=== PATIENT | male | born 1970 | race African-American/Black ===

== ENCOUNTER 2017-01-01 18:12 | Emergency (ER) | payer SELFPAY ==
[~2017-01-01] VITALS: Ht 193 cm; Wt 90.0 kg
[~2017-01-01 18:12] MED LIST: CEPH-460 PO; DICY1TAB26 PO; FLUO20CA4 PO; IBUP800T23 PO; RISP1 PO; TRAZ50TA12 PO
[2017-01-01 18:15] VITALS: BP 120/75; PULSE 92; RESP 20; TEMP 98.6; O2SAT 97
--- NOTE | 2017-01-01 18:18 | PD ---
Physical Exam Date Seen by Provider: Jan 01, 2017 Time Seen by Provider: 18:17 Narrative 46 yo male here for evaluation of depression and suicidal ideation. Uses cocaine and alcohol. Been using in the past 24 hours. Feels suicidal with plan. No injuries. Does not take any meds. No hallucinations. Very anxious in triage. Vitals are stable in triage. Awaiting bed placement. Data Data Last Documented VS Vital Signs Date Time Temp Pulse Resp B/P Pulse Ox O2 Delivery O2 Flow Rate FiO2 01/01/17 18:15 98.6 92 20 120/75 97 Room Air [facility] Medical Record Reviewed: Yes Supervised Visit with MATTHIAS: No Andre Morejon Jan 01, 2017 18:18
[2017-01-01 19:12] LABS: AUTOMATED NEUTROPHIL # 6.8 TH/MM3 (1.8-7.7); BASOPHIL # 0.1 TH/MM3 (0-0.2); BASOPHIL % 0.6 % (0.0-2.0); EOSINOPHIL # 0.3 TH/MM3 (0-0.4); HEMATOCRIT 42.1 % (39.0-51.0); HEMO FLAGS DIFF FINAL; LYMPH % 19.8 % (9.0-44.0); MEAN CELL VOLUME 91.4 FL (80.0-100.0); MEAN CORPUSCULAR HEMOGLOBIN 31.4 PG (27.0-34.0); MEAN CORPUSCULAR HGB CONC 34.3 % (32.0-36.0); MONO % 9.9 % (0.0-8.0); NEUT % 66.7 % (16.0-70.0); PLATELET COUNT 209 TH/MM3 (150-450); RED CELL DISTRIBUTION WIDTH 14.2 % (11.6-17.2); WHITE BLOOD COUNT 10.2 TH/MM3 (4.0-11.0)
[2017-01-01 19:31] LABS: ALT (GPT) 17 U/L (12-78)
[2017-01-01 19:34] LABS: ALKALINE PHOSPHATASE 76 U/L (45-117); TOTAL BILIRUBIN ADULT 0.3 MG/DL (0.2-1.0)
[2017-01-01 19:37] LABS: ANION GAP 9 MEQ/L (5-15); AST (GOT) 19 U/L (15-37); BICARBONATE 27.4 MEQ/L (21.0-32.0); BLOOD UREA NITROGEN 11 MG/DL (7-18); CHLORIDE 102 MEQ/L (98-107); GLOMERULAR FILTRATION RATE 73 ML/MIN (>89); POTASSIUM 3.7 MEQ/L (3.5-5.1); SODIUM (NA) 138 MEQ/L (136-145)
--- NOTE | 2017-01-01 20:48 | PD ---
HPI Chief Complaint: Psychiatric Symptoms Time Seen by Provider: 20:43 Travel History International Travel<30 days: No Contact w/Intl Traveler<30days: No Traveled to known affect area: No History of Present Illness HPI 46-year-old male presents to the emergency department voluntarily for psychiatric evaluation. The patient states that he has been clean for 8 months from cocaine and alcohol. However, 2 weeks ago, he just started using cocaine again. He states he feels like he has two personalities. One that is a family that can hold down a job and the other one that parties. He states he has no cravings, bulges automatically start using cocaine again. He states he has not slept in 5 days. He states that even when he can sleep, illicits for 3 hours at a time. He states he feels fatigued. He states that he has been on risperidone, fluoxetine and trazodone. He states he has been taking these as prescribed. The patient reports feeling suicidal with a plan to drown himself. He denies any attempt to hurt himself at this time. His lifestyles affecting his marriage and he is heading for divorce. Patient denies any medical complaints at this time. PFSH Past Medical History Anxiety: Yes Neurologic: Yes (1 CM BRAIN MASS) Psychiatric: Yes (Hx of treatment for depression, psychosis) Respiratory: Yes (pnumonia in 1996) Social History Alcohol Use: Yes Tobacco Use: Yes (1/2 PPD) Substance Use: Yes (coccaine/etoh) Allergies-Medications (Allergen,Severity, Reaction): Coded Allergies: No Known Allergies (Verified , 01/01/17) Reported Meds & Prescriptions Reported Meds & Active Scripts Active Ibuprofen 800 Mg Tab 800 Mg PO Q6HR PRN Keflex (Cephalexin) 500 Mg Cap 500 Mg PO Q8H 10 Days Trazodone (Trazodone HCl) 50 Mg Tab 50 Mg PO HS PRN Fluoxetine (Fluoxetine HCl) 20 Mg Cap 20 Mg PO DAILY Risperdal (Risperidone) 1 Mg Tab 1 Mg PO Q12HR Bentyl (Dicyclomine HCl) 20 Mg Tab 20 Mg PO Q8 Review of Systems Except as stated in HPI: all other systems reviewed are Neg Physical Exam Narrative GENERAL: Well-nourished, well-developed male patient, alert and oriented to person, place, time. Patient appears very anxious on exam SKIN: Focused skin assessment warm/dry. HEAD: Normocephalic. EYES: No scleral icterus. No injection or drainage. NECK: Supple, trachea midline. No JVD or lymphadenopathy. CARDIOVASCULAR: Regular rate and rhythm without murmurs, gallops, or rubs. RESPIRATORY: Breath sounds equal bilaterally. No accessory muscle use. Lungs sounds are clear to auscultation. GASTROINTESTINAL: Abdomen soft, non-tender, nondistended. MUSCULOSKELETAL: No cyanosis, or edema. PSYCHIATRIC: No delusional thought processes. No hallucinations. Data Data Last Documented VS Vital Signs Date Time Temp Pulse Resp B/P Pulse Ox O2 Delivery O2 Flow Rate FiO2 01/01/17 18:15 98.6 92 20 120/75 97 Room Air Orders Complete Blood Count With Diff (01/01/17 18:19) Comprehensive Metabolic Panel (01/01/17 18:19) Psych Screen (01/01/17 18:19) Drug Screen, Random Urine (01/01/17 18:19) Alcohol (Ethanol) (01/01/17 18:19) Labs Laboratory Tests Test 01/01/17 18:44 White Blood Count 10.2 TH/MM3 Red Blood Count 4.60 MIL/MM3 Hemoglobin 14.4 GM/DL Hematocrit 42.1 % Mean Corpuscular Volume 91.4 FL Mean Corpuscular Hemoglobin 31.4 PG Mean Corpuscular Hemoglobin 34.3 % Concent Red Cell Distribution Width 14.2 % Platelet Count 209 TH/MM3 Mean Platelet Volume 10.0 FL Neutrophils (%) (Auto) 66.7 % Lymphocytes (%) (Auto) 19.8 % Monocytes (%) (Auto) 9.9 % Eosinophils (%) (Auto) 3.0 % Basophils (%) (Auto) 0.6 % Neutrophils # (Auto) 6.8 TH/MM3 Lymphocytes # (Auto) 2.0 TH/MM3 Monocytes # (Auto) 1.0 TH/MM3 Eosinophils # (Auto) 0.3 TH/MM3 Basophils # (Auto) 0.1 TH/MM3 CBC Comment DIFF FINAL Differential Comment Sodium Level 138 MEQ/L Potassium Level 3.7 MEQ/L Chloride Level 102 MEQ/L Carbon Dioxide Level 27.4 MEQ/L Anion Gap 9 MEQ/L Blood Urea Nitrogen 11 MG/DL Creatinine 1.27 MG/DL Estimat Glomerular Filtration 73 ML/MIN Rate Random Glucose 104 MG/DL Calcium Level 9.7 MG/DL Total Bilirubin 0.3 MG/DL Aspartate Amino Transf 19 U/L (AST/SGOT) Alanine Aminotransferase 17 U/L (ALT/SGPT) Alkaline Phosphatase 76 U/L Total Protein 7.9 GM/DL Albumin 4.3 GM/DL Ethyl Alcohol Level 7 MG/DL MDM Medical Decision Making Medical Screen Exam Complete: Yes Emergency Medical Condition: Yes Medical Record Reviewed: Yes Differential Diagnosis Substance-induced mood disorder versus depression versus anxiety versus suicidal ideation versus bipolar disorder versus schizophrenia versus psychosis Narrative Course 46-year-old male presents to the emergency Department voluntarily for psychiatric evaluation. Patient states he is suicidal with the plan. Patient will be placed under Melton act. Patient states he last used cocaine this morning. He is drinking up to the time he came to the hospital. CBC shows no acute abnormality. CMP is unremarkable. Alcohol level is 7. Urine drug screen is pending. Patient is medical cleared for psychiatric screening and disposition. Mental health screening discussed with the patient. Psychiatric screen ordered. Diagnosis Primary Impression: Substance induced mood disorder Additional Instructions: Patient is medically cleared for psychiatric screening and disposition. Condition: Stable Janina Torres ROLANDO Jan 01, 2017 20:48
[2017-01-01] MEDS ORDERED: HALOPERIDOL LACTATE 5 MG/ML AMP IM ONE (21:15)
[2017-01-01] MEDS ORDERED: LORazepam 2 MG/ML VIAL IM ONE (21:15)
[2017-01-01] MEDS ORDERED: diphenhydrAMINE HCL 50 MG/ML VIAL IM ONE (21:15)
[2017-01-01 22:20] VITALS: BP 117/63; PULSE 81; RESP 16; TEMP 98.2; O2SAT 99
[2017-01-02 02:19] VITALS: BP 103/56; PULSE 54; RESP 16; O2SAT 99
[2017-01-02 06:21] VITALS: BP 108/60; PULSE 58; RESP 16; O2SAT 97
[2017-01-02 10:00] VITALS: BP 93/55; PULSE 72; RESP 18
--- NOTE | 2017-01-02 10:35 | PD.PSY.CON ---
Provisional Diagnosis Morris I. Substance-induced mood disorder F 19.94, cocaine abuse F-14.10 History of Present Illness Service Psychiatry Consult Requested By EDMD Reason for Consult Melton act Primary Care Physician No Primary Care Physician HPI Patient is a 46-year-old Afro-Hungarian male comes the ED under Melton act signed by Richi saenz dated 01/01/17 8:48 PM. That document reviewed essentially stating patient feels like he has 2 personalities and has not slept in 5 days report suicidal ideation with plan to drown himself. Patient seen screened in the ED there is no urine toxicology done. Patient states she has been using cocaine daily for a number of weeks. He started using cocaine as an adolescent. Has spent multiple years and 0 related to drug charges. He states he has been living with his and 2 of his 7 children but she kicked him out of the house 2-3 days ago because of his cocaine use. Thus he is now homeless. It appears patient was seen a few years ago through [facility] and been prescribed various medications none of which he took because he states it made him "sedated". So he stopped taking the meds unilaterally and continued his cocaine use. At this time he gives a somewhat convoluted confusing story as to why he is here. It appears his main purpose is for lodging. He denies suicidality and is somewhat manipulative manner. Denies voices in a similar manner. In any event at the present time patient does not meet Melton act criteria. I will lift the Melton act. It is okay by psych for discharge or patient medically cleared and stable. The been no Rx by me. Strong recommendation for this gentleman the absolute abstinence, referred to NA, referred to [facility] for voluntary substance abuse assessment, and referred to [facility] for any further mental health assessment. Also suggested that he attempt to arrange lodging in his sober house such [facility]. (Patient states he knows about them and may have resided there in the past) Review of Systems Constitutional: DENIES: Diaphoretic episodes, Fatigue, Fever, Weight gain, Weight loss, Chills, Dizziness, Change in appetite, Night Sweats Endocrine: DENIES: Heat/cold intolerance, Polydipsia, Polyuria, Polyphagia Eyes: DENIES: Blurred vision, Diplopia, Eye inflammation, Eye pain, Vision loss , Photosensitivity, Double Vision Respiratory: DENIES: Apneas, Cough, Snoring, Wheezing, Hemoptysis, Sputum production, Shortness of breath Cardiovascular: DENIES: Chest pain, Palpitations, Syncope, Dyspnea on Exertion , PND, Lower Extremity Edema, Orthopnea, Claudication Gastrointestinal: DENIES: Abdominal pain, Black stools, Bloody stools, Constipation, Diarrhea, Nausea, Vomiting, Difficulty Swallowing, Anorexia Genitourinary: DENIES: Sexual dysfunction, Urinary frequency, Urinary incontinence, Urgency, Hematuria, Dysuria, Nocturia, Penile Discharge, Testicular Pain, Testicular Swelling Musculoskeletal: DENIES: Joint pain, Muscle aches, Stiffness, Joint Swelling, Back pain, Neck pain Integumentary: DENIES: Abnormal pigmentation, Nail changes, Pruritus, Rash Hematologic/lymphatic: DENIES: Bruising, Lymphadenopathy Immunologic/allergic: DENIES: Eczema, Urticaria Psychiatric: DENIES: Anxiety, Confusion, Mood changes, Depression, Hallucinations, Agitation, Suicidal Ideation, Homicidal Ideation, Delusions Past Family Social History Coded Allergies: No Known Allergies (Verified , 01/01/17) Past Medical History Patient medically cleared ED Discontinued Scripts Ibuprofen 800 Mg [id number] Mg PO Q6HR PRN (PAIN) #30 TAB Ref 0 Prov:Jada Herrera [employer]UTIONS ANALYST 05/20/16 Cephalexin (Keflex)500 Mg [id number] Mg PO Q8H 10 Days Ref 0 Prov:Jada HerreraP 05/20/16 Trazodone 50 Mg Tab50 Mg PO HS PRN (INSOMNIA) #30 TAB Prov:Padmini Xavier MD 05/11/16 Risperidone (Risperdal)1 Mg Tab1 Mg PO Q12HR #60 TAB Prov:Padmini Xavier MD 05/11/16 Family History Unknown at this time Social History Patient was living with his and 2 of his 7 children, has been homeless since she kicked him out of the house 2-3 days ago Patient's Strengths (min. 2) Patient verbal able to access health care Physical Exam Patient screened in ED exam reviewed and agreed with patient laying quietly in his mattress on the floor in J pod nurse Maikol present throughout session. Patient is in no acute distress, neck supple, he is in no respiratory distress. No complaints of abdominal pain. Patient moving all 4 extremities without difficulty. No abnormal motor movements noted Vital Signs Vital Signs Date Time Temp Pulse Resp B/P Pulse Ox O2 Delivery O2 Flow Rate FiO2 01/02/17 06:21 58 16 108/60 97 01/01/17 22:20 98.2 Room Air Mental Status Examination Alert oriented thin slender tall Afro-Hungarian male guarded and perhaps somewhat manipulative in his responses Appearance Somewhat disheveled Speech: Rapid, Circumstantial, Tangential Orientation: x3 Memory: Unremarkable Thought Process: Circumstantial, Linear Thought Content: Paranoid (mildly), Other Language Poor Fund of Knowledge Poor Hallucination Type: None (denies) Attention and Concentration: Other (poor) Suicidal Ideation: No (denies at this time) Previous Suicide Attempts: Yes Homicidal Ideation: No Previous Homicide Attempts: No Insight: Poor Judgment: Poor Affect: Other (decrease range and intensity) Mood: Euthymic (to somewhat restricted and dysphoric) Motor Activity: Normal gait Assessment & Plan Problem List: (1) Substance induced mood disorder ICD Code: F19.94 (2) Cocaine abuse ICD Code: F14.10 Assessment & Plan Estimated LOS: days this time patient does not meet Melton act criteria will lift Melton act. It is okay by psych for discharge when medically clear and stable. No Rx by me. Referral [facility] for further medication assessment at his discretion. Refer [facility] outpatient [facility] substance abuse assessment. Referred to NA. Refer to sober house such as [facility] Discharge Planning See above Request HC Surrog/Guard Advoc?: No Breezy Costello MD Jan 02, 2017 10:35
[2017-01-02 11:01] VITALS: BP 93/55; PULSE 72; RESP 18
== END 2017-01-02 11:52 | disposition home or self-care (01) ==
LOC: NEPD 18:12 → NEPJ 01-02 11:52
DX: F19.94 Other psychoactive substance use, unspecified with psychoactive substance-induced mood disorder (principal)
CPT/HCPCS: 80053; 80307; 85025; 96372; 99284; J1200; J1630; J2060

== ENCOUNTER 2017-03-20 15:49 | Inpatient (IN) | payer OTHER ==
[~2017-03-20] VITALS: Ht 190.5 cm; Wt 86.6 kg
[2017-03-20] MEDS ORDERED: SODIUM CHLOR 0.9% 1000 ML INJ 1,000 ML IV ONE (15:59)
[2017-03-20] MEDS ORDERED: LORazepam 2 MG/ML VIAL IV PUSH ONE (16:00)
[2017-03-20] MEDS ORDERED: SODIUM CHLORIDE 0.9% FLUSH 10 ML FLUSH IVF PRN (16:00)
[2017-03-20] MEDS ORDERED: ZIPRASIDONE MESYLATE 20 MG VIAL IM ONE (16:00)
[2017-03-20] MEDS ORDERED: diphenhydrAMINE HCL 50 MG/ML VIAL IV PUSH ONE (16:00)
[2017-03-20 16:04] VITALS: O2SAT 100
[2017-03-20 16:05] VITALS: BP 114/83; PULSE 94; RESP 28; TEMP 98.5; O2SAT 97
--- NOTE | 2017-03-20 16:08 | PD ---
HPI Chief Complaint: Alcohol/Drug Intoxication Time Seen by Provider: 16:02 Travel History International Travel<30 days: No Contact w/Intl Traveler<30days: No Traveled to known affect area: No History of Present Illness HPI Diagnoses a 46-year-old male with history of polysubstance abuse, schizophrenia , bipolar disorder, depression, who presents today under a Melton act with severe agitation after he reportedly used cocaine and coughed cleaning solution. The patient states he's never done this before. When asked about never doing any drugs before he states he has never huffed before but has used cocaine in the past. He denies any chest pain, chest pressure. He reports severe agitation. He does report in the past he has had suicidal ideation and homicidal ideation. He denies any suicidal ideation today. PFSH Past Medical History Bipolar Disorder: Yes Anxiety: Yes Diminished Hearing: No Neurologic: Yes (1 CM BRAIN MASS) Psychiatric: Yes (Hx of treatment for depression, psychosis) Respiratory: Yes (pnumonia in 1996) Schizophrenia: Yes Social History Alcohol Use: Yes (SOCIALLY) Tobacco Use: Yes (1/2 PPD) Substance Use: Yes (coccaine/etoh) Allergies-Medications (Allergen,Severity, Reaction): Coded Allergies: No Known Allergies (Verified , 01/01/17) Reported Meds & Prescriptions Reported Meds & Active Scripts Active No Active Prescriptions or Reported Medications Review of Systems ROS Limitations: Clinical Condition, Intoxication HENT: No: Headaches, Neck Pain Cardiovascular: No: Chest Pain or Discomfort, Palpitations Respiratory: No: Cough, Shortness of Breath Gastrointestinal: No: Nausea, Vomiting, Abdominal Pain Musculoskeletal: No: Myalgias, Weakness, Pain Neurologic: No: Weakness, Dizziness, Headache Psychiatric: Positive: Anxiety, Mood Disorder, Substance Abuse, No: Suicidal Ideations, Homicidal Ideation Physical Exam Narrative GENERAL: Well-developed well-nourished male who appears to be acutely agitated. SKIN: Focused skin assessment warm/dry. HEAD: Atraumatic. Normocephalic. EYES: Pupils equal and round at 4 mm. No scleral icterus. No injection or drainage. ENT: No nasal bleeding or discharge. Mucous membranes pink and moist. NECK: Trachea midline. No JVD. Full range of motion/supple. CARDIOVASCULAR: Regular rate and rhythm. No murmur appreciated. RESPIRATORY: No accessory muscle use. Clear to auscultation. Breath sounds equal bilaterally. Hepatic and splenic margins not palpable. MUSCULOSKELETAL: No obvious deformities. No clubbing. No cyanosis. No edema. NEUROLOGICAL: Awake and agitated. No obvious cranial nerve deficits. Motor grossly within normal limits. Normal speech. PSYCHIATRIC: Acutely agitated with aggressive mood. Data Data Last Documented VS Vital Signs Date Time Temp Pulse Resp B/P (MAP) Pulse Ox O2 Delivery O2 Flow Rate FiO2 03/20/17 18:42 73 15 104/67 (79) 100 Nasal Cannula 2.00 03/20/17 16:05 98.5 Orders Orders Electrocardiogram (03/20/17 15:59) Basic Metabolic Panel (Bmp) (03/20/17 15:59) Complete Blood Count With Diff (03/20/17 15:59) Iv Access Insert/Monitor (03/20/17 15:59) Ecg Monitoring (03/20/17 15:59) Oximetry (03/20/17 15:59) Lorazepam Inj (Ativan Inj) (03/20/17 16:00) Sodium Chloride 0.9% Flush (Ns Flush) (03/20/17 16:00) Sodium Chlor 0.9% 1000 Ml Inj (Ns 1000 M (03/20/17 15:59) Drug Screen, Random Urine (03/20/17 15:59) Alcohol (Ethanol) (03/20/17 15:59) Ziprasidone Inj (Geodon Inj) (03/20/17 16:00) Diphenhydramine Inj (Benadryl Inj) (03/20/17 16:00) Labs Laboratory Tests Test 03/20/17 16:20 White Blood Count 12.6 TH/MM3 Red Blood Count 4.93 MIL/MM3 Hemoglobin 15.6 GM/DL Hematocrit 45.6 % Mean Corpuscular Volume 92.6 FL Mean Corpuscular Hemoglobin 31.7 PG Mean Corpuscular Hemoglobin Concent 34.2 % Red Cell Distribution Width 14.2 % Platelet Count 211 TH/MM3 Mean Platelet Volume 9.8 FL Neutrophils (%) (Auto) 74.9 % Lymphocytes (%) (Auto) 13.9 % Monocytes (%) (Auto) 9.5 % Eosinophils (%) (Auto) 1.1 % Basophils (%) (Auto) 0.6 % Neutrophils # (Auto) 9.5 TH/MM3 Lymphocytes # (Auto) 1.8 TH/MM3 Monocytes # (Auto) 1.2 TH/MM3 Eosinophils # (Auto) 0.1 TH/MM3 Basophils # (Auto) 0.1 TH/MM3 CBC Comment DIFF FINAL Differential Comment Blood Urea Nitrogen 15 MG/DL Creatinine 1.28 MG/DL Random Glucose 75 MG/DL Calcium Level 10.2 MG/DL Sodium Level 138 MEQ/L Potassium Level 3.9 MEQ/L Chloride Level 102 MEQ/L Carbon Dioxide Level 28.9 MEQ/L Anion Gap 7 MEQ/L Estimat Glomerular Filtration Rate 73 ML/MIN Ethyl Alcohol Level LESS THAN 3 MG/DL MDM Medical Decision Making Medical Screen Exam Complete: Yes Emergency Medical Condition: Yes Differential Diagnosis Substance induced mood disorder versus manic episode versus metabolic derangement Narrative Course 46-year-old male presents under Melton act with substance induced psychosis. The patient states he was huffing computer propellant and using cocaine. The patient came acutely agitated. He was cooperative to a point. He was given Benadryl and lorazepam. He is currently sleeping. He'll be medically cleared for psychiatric evaluation. There is a possibility that once he is sober and has worn off all of his polysubstance, that the Melton act may be lifted. I will discuss with the physician replacing me whether or not he is comfortable clearing him once he bob up. Diagnosis Primary Impression: Substance-induced psychotic disorder with hallucinations Additional Impressions: Melton act medically cleared Scripts No Active Prescriptions or Reported Meds Neeraj Menon MD Mar 20, 2017 16:08
[2017-03-20 16:44] LABS: AUTOMATED NEUTROPHIL # 9.5 TH/MM3 (1.8-7.7); BASOPHIL # 0.1 TH/MM3 (0-0.2); BASOPHIL % 0.6 % (0.0-2.0); EOSINOPHIL # 0.1 TH/MM3 (0-0.4); EOSINOPHIL % 1.1 % (0.0-4.0); HEMATOCRIT 45.6 % (39.0-51.0); HEMO FLAGS DIFF FINAL; LYMPH % 13.9 % (9.0-44.0); LYMPHOCYTE # 1.8 TH/MM3 (1.0-4.8); MEAN CELL VOLUME 92.6 FL (80.0-100.0); MEAN CORPUSCULAR HEMOGLOBIN 31.7 PG (27.0-34.0); MEAN CORPUSCULAR HGB CONC 34.2 % (32.0-36.0); MONO % 9.5 % (0.0-8.0); NEUT % 74.9 % (16.0-70.0); PLATELET COUNT 211 TH/MM3 (150-450); RED BLOOD COUNT 4.93 MIL/MM3 (4.50-5.90); RED CELL DISTRIBUTION WIDTH 14.2 % (11.6-17.2); WHITE BLOOD COUNT 12.6 TH/MM3 (4.0-11.0)
[2017-03-20 17:07] LABS: ANION GAP 7 MEQ/L (5-15); BICARBONATE 28.9 MEQ/L (21.0-32.0); BLOOD UREA NITROGEN 15 MG/DL (7-18); CHLORIDE 102 MEQ/L (98-107); GLOMERULAR FILTRATION RATE 73 ML/MIN (>89); POTASSIUM 3.9 MEQ/L (3.5-5.1); SODIUM (NA) 138 MEQ/L (136-145)
[2017-03-20 17:11] LABS: ALCOHOL LESS THAN 3 MG/DL (0-5)
[2017-03-20 18:42] VITALS: BP 104/67; PULSE 73; RESP 15; O2SAT 100
--- NOTE | 2017-03-20 20:20 | PD ---
Physical Exam Narrative Patient was seen by ED physician and signed out to me. Data Data Last Documented VS Vital Signs Date Time Temp Pulse Resp B/P (MAP) Pulse Ox O2 Delivery O2 Flow Rate FiO2 03/20/17 18:42 73 15 104/67 (79) 100 Nasal Cannula 2.00 03/20/17 16:05 98.5 Orders Orders Electrocardiogram (03/20/17 15:59) Basic Metabolic Panel (Bmp) (03/20/17 15:59) Complete Blood Count With Diff (03/20/17 15:59) Iv Access Insert/Monitor (03/20/17 15:59) Ecg Monitoring (03/20/17 15:59) Oximetry (03/20/17 15:59) Lorazepam Inj (Ativan Inj) (03/20/17 16:00) Sodium Chloride 0.9% Flush (Ns Flush) (03/20/17 16:00) Sodium Chlor 0.9% 1000 Ml Inj (Ns 1000 M (03/20/17 15:59) Drug Screen, Random Urine (03/20/17 15:59) Alcohol (Ethanol) (03/20/17 15:59) Ziprasidone Inj (Geodon Inj) (03/20/17 16:00) Diphenhydramine Inj (Benadryl Inj) (03/20/17 16:00) Labs Laboratory Tests Test 03/20/17 16:20 White Blood Count 12.6 TH/MM3 Red Blood Count 4.93 MIL/MM3 Hemoglobin 15.6 GM/DL Hematocrit 45.6 % Mean Corpuscular Volume 92.6 FL Mean Corpuscular Hemoglobin 31.7 PG Mean Corpuscular Hemoglobin Concent 34.2 % Red Cell Distribution Width 14.2 % Platelet Count 211 TH/MM3 Mean Platelet Volume 9.8 FL Neutrophils (%) (Auto) 74.9 % Lymphocytes (%) (Auto) 13.9 % Monocytes (%) (Auto) 9.5 % Eosinophils (%) (Auto) 1.1 % Basophils (%) (Auto) 0.6 % Neutrophils # (Auto) 9.5 TH/MM3 Lymphocytes # (Auto) 1.8 TH/MM3 Monocytes # (Auto) 1.2 TH/MM3 Eosinophils # (Auto) 0.1 TH/MM3 Basophils # (Auto) 0.1 TH/MM3 CBC Comment DIFF FINAL Differential Comment Blood Urea Nitrogen 15 MG/DL Creatinine 1.28 MG/DL Random Glucose 75 MG/DL Calcium Level 10.2 MG/DL Sodium Level 138 MEQ/L Potassium Level 3.9 MEQ/L Chloride Level 102 MEQ/L Carbon Dioxide Level 28.9 MEQ/L Anion Gap 7 MEQ/L Estimat Glomerular Filtration Rate 73 ML/MIN Ethyl Alcohol Level LESS THAN 3 MG/DL MDM Supervised Visit with MATTHIAS: No Interpretation(s) 2019 p.m. CBC with WBC 12.6. 74 neutrophil. BMP within normal limit. Calcium 10.2. Alcohol less than 3. Diagnosis Primary Impression: Substance-induced psychotic disorder with hallucinations Additional Impressions: Melton act medically cleared Scripts No Active Prescriptions or Reported Meds Norman Alonso MD Mar 20, 2017 20:20
[2017-03-21 07:00] VITALS: BP 115/75; PULSE 68; RESP 19; O2SAT 96
--- NOTE | 2017-03-21 07:43 | EKG ---
Date Performed: 03/20/2017 Time Performed: 16:26:42 PTAGE: 46 years EKG: Sinus rhythm WITH OCCASIONAL SUPRAVENTRICULAR PREMATURE COMPLEXES BORDERLINE ECG INTERPRETATION BASED ON A DEFAUL T AGE OF 40 YEARS Compared to prior electrocardiogram, Premature atrial contraction are now present PREVIOUS TRACING : 05/06/2016 15.17 DOCTOR: Jermaine Mcelroy Interpretating Date/Time 03/21/2017 07:42:51
[2017-03-21 13:09] VITALS: BP 140/72; PULSE 88; RESP 24; TEMP 98; O2SAT 99
[2017-03-21 18:00] VITALS: BP 115/61; PULSE 86; RESP 20
[2017-03-21 21:30] VITALS: BP 113/67; PULSE 72; RESP 17; TEMP 98.9; O2SAT 97
[2017-03-21] MEDS ORDERED: LORazepam 1 MG TAB PO PRN (21:45)
[2017-03-21] MEDS ORDERED: LORazepam 2 MG/ML VIAL IM PRN (21:45)
[2017-03-21] MEDS ORDERED: MAGNESIUM HYDROXIDE SUSP 30 ML CUP PO PRN (21:45)
[2017-03-21] MEDS ORDERED: ALUMINUM/MAGNESIUM/SIMETH 30 ML CUP PO PRN (21:45)
[2017-03-21] MEDS ORDERED: ACETAMINOPHEN 325 MG TAB PO PRN (21:45)
[2017-03-22 06:15] VITALS: BP 107/53; PULSE 66; RESP 16; TEMP 97.5; O2SAT 98
[2017-03-22] MEDS: NICOTINE 21 MG/24 HR PATCH T-DERMAL SCH (08:40)
[2017-03-22 11:00] LABS: ANION GAP 8 MEQ/L (5-15); BICARBONATE 27.8 MEQ/L (21.0-32.0); BLOOD UREA NITROGEN 12 MG/DL (7-18); CHLORIDE 103 MEQ/L (98-107); GLOMERULAR FILTRATION RATE 101 ML/MIN (>89); POTASSIUM 3.9 MEQ/L (3.5-5.1); SODIUM (NA) 139 MEQ/L (136-145)
[2017-03-22 11:01] LABS: LDL CHOLESTEROL 109 MG/DL (0-99)
[2017-03-22] MEDS: FLUoxetine HCL 20 MG CAP PO SCH (14:30)
[2017-03-22 15:05] LABS: HEMOGLOBIN A1a 1.2 %; HEMOGLOBIN A1b 0.8 %; HEMOGLOBIN Ao 85.5 %; HEMOGLOBIN LA1C 1.8 %; HEMOGLOBIN P3 3.4 %
[2017-03-22 17:44] VITALS: BP 105/55; PULSE 67; RESP 18; TEMP 98.4; O2SAT 97
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
[2017-03-22] MEDS: REMOVE OLD NICOTINE PATCH T-DERMAL SCH (21:00)
[2017-03-22] MEDS: OLANZapine 10 MG TAB PO SCH (21:30)
[2017-03-23 06:26] VITALS: BP 96/57; PULSE 50; RESP 17; TEMP 97.8; O2SAT 100
[2017-03-23] MEDS: NICOTINE 21 MG/24 HR PATCH T-DERMAL SCH (07:29)
[2017-03-23] MEDS: REMOVE OLD NICOTINE PATCH T-DERMAL SCH (07:29)
[2017-03-23] MEDS: FLUoxetine HCL 20 MG CAP PO SCH (08:48)
--- NOTE | 2017-03-23 15:25 | HHI.PYPN ---
Subjective Remarks Patient seen for follow-up, chart reviewed. Patient reports feeling "groggy" , reports mood being "a little depressed was "but denies any suicide ideations at this time. Patient said he slept well, tolerating medications well and adverse drug reactions, denies any perceptual disturbances or delusions at this time. Patient reports feeling worried about a quart 8 he has tomorrow due to his recent charge of drug possession. Chief Complaint: suicidal ideations in the context of continued polysubstance use Review of Systems Except as stated in HPI: all other systems reviewed are Neg Mental Status Examination Appearance: Appropriate Consciousness: Alert Orientation: x4 Motor Activity: Normal gait Speech: Unremarkable Language: Adequate Fund of Knowledge: Adequate Attention and Concentration: Adequate Memory: Unremarkable Mood: Sad ("a little depressed") Affect: Other (restrictive, guarded) Thought Process & Associations: Logical, Linear Thought Content: Appropriate Hallucination Type: None Delusion Type: None Suicidal Ideation: No Suicidal Plan: No Suicidal Intention: No Homicidal Ideation: No Homicidal Plan: No Homicidal Intention: No Insight: Fair Judgment: Impulsive Results Vitals/IOs Vital Signs Date Time Temp Pulse Resp B/P (MAP) Pulse Ox O2 Delivery O2 Flow Rate FiO2 03/23/17 06:26 97.8 50 17 96/57 (70) 100 03/21/17 18:00 Room Air 03/20/17 18:42 2.00 Assessment & Plan Problem List: (1) Adjustment disorder with depressed mood ICD Codes: F43.21 - Adjustment disorder with depressed mood (2) Polysubstance abuse ICD Codes: F19.10 - Other psychoactive substance abuse, uncomplicated Assessment & Plan Patient this time reports feeling still depressed but denies any suicide ideations. Patient continues to be interested in going to a rehabilitation program. Treatment team will provide rehabilitation program packet for patient to contact these programs for acceptance. Continue current treatment. Discharge planning in progress Justification for Cont. Inpt. At risk for further decompensation if at lower level of care Discharge Planning Upon discharge patient may go to inpatient rehabilitation program and accepted, if not patient will likely be discharged to a homeless custodial or if patient finds sober living houses. Phillip Jaimes MD Mar 23, 2017 15:25
[2017-03-23 16:36] VITALS: BP 90/57; PULSE 76; RESP 16; TEMP 98; O2SAT 100
[2017-03-23 20:27] VITALS: BP 110/76; PULSE 66
[2017-03-23] MEDS: OLANZapine 10 MG TAB PO SCH (21:00)
[2017-03-24 06:11] VITALS: BP 102/57; PULSE 62; RESP 18; TEMP 97.5; O2SAT 98
[2017-03-24] MEDS: FLUoxetine HCL 20 MG CAP PO SCH (08:09)
[2017-03-24] MEDS: NICOTINE 21 MG/24 HR PATCH T-DERMAL SCH (08:09)
[2017-03-24] MEDS ORDERED: FLUO20CA12 PO (12:38)
[2017-03-24] MEDS ORDERED: OLAN10TA PO (12:38)
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
== END 2017-03-24 13:39 | disposition home or self-care (01) | DRG 881 ==
LOC: NEPC 15:49 → NEDA 03-21 18:42 → H260 03-21 21:20
PROVIDERS: ADMIT Student in an Organized Health Care Education/Training Program; ATTEND Student in an Organized Health Care Education/Training Program
DX: F43.21 Adjustment disorder with depressed mood (principal); R45.851 Suicidal ideations; F20.9 Schizophrenia, unspecified; F19.10 Other psychoactive substance abuse, uncomplicated; Z62.810 Personal history of physical and sexual abuse in childhood; F17.210 Nicotine dependence, cigarettes, uncomplicated; F31.9 Bipolar disorder, unspecified; F14.10 Cocaine abuse, uncomplicated; F41.9 Anxiety disorder, unspecified; Z59.0 Homelessness
CPT/HCPCS: 80048; 80061; 80307; 83036; 85025; 93005; 96361; 96374; 96375; J1200; J2060; J7030